=== PATIENT | female | born 2000 | race Caucasian/White ===

== ENCOUNTER 2024-05-21 13:25 | Emergency (ER) | payer OTHER, SELFPAY ==
[2024-05-21] MEDS ORDERED: Ketorolac Tromethamine 30 MG (1 mL) VIAL ONE (14:07)
[2024-05-21] MEDS ORDERED: diphenhydrAMINE 50 MG/ML VIAL ONE (14:07)
[2024-05-21] MEDS ORDERED: Promethazine HCl 25 MG/ML VIAL ONE (14:08)
== END 2024-05-21 15:33 | disposition home or self-care (01) ==
LOC: BURERS 13:25
DX: G43.909 Migraine, unspecified, not intractable, without status migrainosus (principal)
CPT/HCPCS: 96361; 96374; 96375; J1200; J1885; J2550

== ENCOUNTER 2024-07-14 00:19 | Emergency (ER) | payer SELFPAY ==
[2024-07-14] MEDS ORDERED: Ketorolac Tromethamine 30 MG (1 mL) VIAL ONE (00:50)
[2024-07-14] MEDS ORDERED: Ondansetron PF 4 MG/2 ML Vial ONE (00:50)
[2024-07-14] MEDS ORDERED: Dicyclomine 20 MG TAB ONE (00:50)
[2024-07-14 00:58] LABS: #Basophils 0.1 thou/uL (0.0-0.2); #Eosinophils 0.2 thou/uL (0.0-0.7); #Lymphocytes 2.8 thou/uL (1.20-3.40); #Monocytes 0.5 thou/uL (0.11-0.59); #Neutrophils 3.3 thou/uL (1.40-6.50); %Basophils 0.8 % (0.0-1.0); %Eosinophils 3.3 % (0.0-10.0); %Neutrophils 47.9 % (42.0-75.0); Hemoglobin 13.2 g/dL (12.0-16.0); Mean Corpuscular HGB CONC 33.1 g/dL (32.0-36.0); Mean Corpuscular Hemoglobin 29.2 pg (27.0-31.0); Mean Corpuscular Volume 88.4 fl (78.0-98.0); Platelet Count 267 10x3/uL (130-400); RBC Distribution Width 10.1 % (11.5-14.5); Red Blood Cell (RBC) Count 4.53 mill/uL (4.20-5.40); White Blood Cell (WBC) Count 6.9 10x3/uL (4.8-10.8)
[2024-07-14 01:17] LABS: BHCG - Serum Negative (NEGATIVE); Pregs Control Background? CLEAR/WHITE (CLR/WHITE); Pregs Control Bar Appear? YES (CONTROL BAR)
[2024-07-14 01:28] LABS: ALT (SGPT) 9 U/L (8-55); AST (SGOT) 11 U/L (5-34); Albumin 3.6 g/dL (3.5-5.0); Alkaline Phosphatase 55 U/L (40-110); Anion Gap 13 mmol/L (10-20); BUN (Urea Nitrogen) 14 mg/dL (7.0-18.7); Bilirubin, Total 0.3 mg/dL (0.2-1.2); Calc. Creatinine Clearance 0 mL/min (70-130); Calcium 9.6 mg/dL (7.8-10.44); Carbon Dioxide 23 mmol/L (22-29); Chloride 109 mmol/L (98-107); Estimated GFR 71; Globulin 2.8 g/dL (2.4-3.5); Glucose 101 mg/dL (70-105); Lipase 20 U/L (8-78); Potassium 3.9 mmol/L (3.5-5.1); Protein, Total 6.4 g/dL (6.0-8.3); Sodium 141 mmol/L (136-145)
[2024-07-14 01:50] LABS: Bacteria/HPF None Seen HPF (None Seen); Bilirubin Negative (Negative); Blood, Urine Trace (Negative); CAUTI Indications for Culture Dysuria,urgency,freq; Clarity Clear (Clear); Glucose, Urine (Dipstick) Negative (Negative); Ketone, Urine Trace mg/dL (Negative); Leukocyte Negative (Negative); Nitrite Negative (Negative); Protein, Urine (Dipstick) Negative (Neg-Trace); RBC/HPF 0-3 HPF (0-3); Specific Gravity, Urine Greater/Equal 1.030 (1.005-1.030); Squamous Epithelial 0-3 HPF (0-3); Urobilinogen 0.2 mg/dL (Less than 2); WBC/HPF None Seen HPF (0-3)
[2024-07-14 01:51] LABS: Urine Culture Reflex No No
== END 2024-07-14 02:00 | disposition home or self-care (01) ==
LOC: BURERS 00:19
DX: K52.9 Noninfective gastroenteritis and colitis, unspecified (principal)
CPT/HCPCS: 80053; 81001; 83690; 84703; 85025; 96374; 96375; J1885; J2405

== ENCOUNTER 2025-08-15 17:18 | Emergency (ER) | payer OTHER | END 2025-08-15 18:28 | disposition home or self-care (01) | LOC: BURERS 17:18 | DX: B34.9 Viral infection, unspecified (principal); F17.290 Nicotine dependence, other tobacco product, uncomplicated; R29.700 NIHSS score 0 | CPT/HCPCS: 87081; 87428; 87430 ==